=== PATIENT | female | born 1990 | race Caucasian/White ===

== ENCOUNTER 2020-02-16 16:09 | Emergency (ER) | payer OTHER, SELFPAY ==
[2020-02-16 16:36] VITALS: BP 141/67; PULSE 82; RESP 20; TEMP 36.7; O2SAT 97; BMI 34.0
[2020-02-16 16:43] VITALS: BP 141/76; PULSE 78; RESP 18; TEMP 36.7; O2SAT 98
--- NOTE | 2020-02-16 17:10 | PC.NURSE ---
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 STATES UNDERSTANDING RE: F/U W/PCP MD AWARE
== END 2020-02-16 17:11 | disposition left against medical advice (07) ==
PROVIDERS: Emergency Provider Emergency Medicine
DX: R10.9 Unspecified abdominal pain (principal)
CPT/HCPCS: 99281; 99284